=== PATIENT | male | born 1980 | race Caucasian/White ===

== ENCOUNTER → 2017-12-17 | Outpatient (CLI) | payer OTHER ==
--- NOTE | 2017-12-17 11:38 | XR ---
EXAMINATION TYPE: XR knee complete RT DATE OF EXAM: 12/17/2017 CLINICAL HISTORY: pain TECHNIQUE: Three views of the right knee are obtained. COMPARISON: None. FINDINGS: There is no acute fracture/dislocation. The tri-compartment joint spaces appear within no rmal limits. The overlying soft tissue appears unremarkable. Joint effsuion noted. IMPRESSION: There is no acute fracture or dislocation.ICD 10 NO FRACTURE, INITIAL EVALUATION
== END | disposition home or self-care (01) ==
LOC: RADXRMAIN 10:55
PROVIDERS: ATTEND Family Medicine
DX: M25.561 Pain in right knee (principal)

== ENCOUNTER → 2019-10-24 | Outpatient (CLI) | payer BC ==
--- NOTE | 2019-10-25 10:25 | MR ---
EXAMINATION TYPE: MR shoulder LT wo con DATE OF EXAM: 10/24/2019 COMPARISON: None HISTORY: Lt shoulder pain x 4 mos TECHNIQUE: Multiplanar, multisequence imaging of the left shoulder is performed without contrast. FINDINGS: Rotator Cuff: There is mild tendinopathy of the supraspinatus and the distal insertional fibers with signal alteration and bursal surface fiber fraying. No sizable tear is seen. The infraspinatus demons trates moderate tendinopathy of the insertional fibers with alteration of the intrinsic signal. The t eres minor and subscapularis are unremarkable in signal and muscle volume. Acromioclavicular Joint: There is moderate acromioclavicular arthropathy with capsular hypertrophy, s ubchondral cystic change and marginal osteophytes. Glenohumeral Joint: Small osteophyte is seen in the anterior inferior humeral head. Glenohumeral join t space is otherwise maintained. Labrum: The labrum appears grossly intact given limitation of non-arthrogram study. Biceps Tendon: The long head of biceps is in normal location within bicipital groove. There is mild t endinopathy of the intra-articular portion of the long head of the biceps with signal alteration of t he intrinsic signal. Bone marrow signal: No focal abnormal marrow signal is appreciated. Other: Trace amount of fluid in the subdeltoid/subacromial bursa. IMPRESSION: 1. Mild supraspinatus tendinopathy and moderate infraspinatus tendinopathy with minimal bursal surfac e fiber fraying of the supraspinatus. No sizable rotator cuff tear. 2. Moderate acromioclavicular arthropathy. 3. Mild tendinopathy of the intra-articular portion long head of the biceps tendon. 4. Findings that can be seen in subdeltoid/subacromial bursitis.
== END | disposition home or self-care (01) ==
LOC: RADMRIMAIN 12:50
PROVIDERS: ATTEND Family Medicine
DX: M75.82 Other shoulder lesions, left shoulder (principal); M12.812 Other specific arthropathies, not elsewhere classified, left shoulder; M67.922 Unspecified disorder of synovium and tendon, left upper arm

== ENCOUNTER → 2021-07-12 | Outpatient (CLI) | payer BC ==
--- NOTE | 2021-07-13 00:45 | MR ---
EXAMINATION TYPE: MR knee RT wo con DATE OF EXAM: 07/12/2021 COMPARISON: None HISTORY: Right inner knee pain, pain behind knee, painful kneecap, and swelling for 2 weeks after mis sing a step on stairs. Multiplanar multiecho imaging of the right knee without contrast. The anterior and posterior cruciate ligaments are intact. There is a mild knee joint effusion. There is complex horizontal and vertical tear through the posterior horn medial meniscus. The lateral menis cus is intact. Collateral ligaments appear intact. There is mild subchondral edema in the medial tibial condyle. Thi s is seen near the tibial spines. The distal femur is intact. There is small popliteal cyst measuring 2 x 1 cm. IMPRESSION: There is complex tear of the posterior horn medial meniscus. Mild osteoarthritic changes. There is mi ld spurring of the femoral and tibial condyles. Knee joint effusion and small popliteal cyst. There is evidence of mild bone bruise of the medial tib ial condyle. There is also similar mild subchondral edema in the patella.
== END | disposition home or self-care (01) ==
LOC: RADMRIMAIN 21:08
PROVIDERS: ATTEND Orthopaedic Surgery
DX: S83.231A Complex tear of medial meniscus, current injury, right knee, initial encounter (principal); S80.12XA Contusion of left lower leg, initial encounter; M17.11 Unilateral primary osteoarthritis, right knee; M25.461 Effusion, right knee; M71.22 Synovial cyst of popliteal space [Baker], left knee; W10.9XXA Fall (on) (from) unspecified stairs and steps, initial encounter

== ENCOUNTER → 2021-07-27 | Outpatient (CLI) | payer BC ==
[2021-07-27 16:20] LABS: Basophils # (A) 0.03 X 10*3/uL (0.00-0.10); Basophils % (A) 0.6 %; Eosinophils # (A) 0.23 X 10*3/uL (0.04-0.35); Eosinophils % (A) 4.5 %; HCT 46.8 % (39.6-50.0); HGB 15.8 g/dL (13.0-17.0); Immature Grans, Automated 0.2 %; Lymphocytes # (A) 2.13 X 10*3/uL (0.90-5.00); Lymphocytes % (A) 41.7 %; MCH 29.2 pg (27.0-32.0); MCHC 33.8 g/dL (32.0-37.0); MCV 86.5 fL (80.0-97.0); Monocytes # (A) 0.32 X 10*3/uL (0.20-1.00); Monocytes % (A) 6.3 %; NRBC Per 100 WBC 0 /100 WBCS (0.0-0.0); Neutrophils # (A) 2.39 X 10*3/uL (1.80-7.70); Neutrophils % (A) 46.7 %; Platelet Count 262 X 10*3/uL (140-440); RBC 5.41 X 10*6/uL (4.40-5.60); RDW 12.7 % (11.5-14.5); WBC 5.11 X 10*3/uL (4.50-10.00)
[2021-07-27 16:27] LABS: Anion Gap 11.3 mmol/L (10.00-18.00); Carbon Dioxide 22.8 mmol/L (20.0-27.5); Potassium 4.1 mmol/L (3.5-5.5)
== END | disposition home or self-care (01) ==
LOC: LABPAT 10:17
PROVIDERS: ATTEND Orthopaedic Surgery
DX: Z01.812 Encounter for preprocedural laboratory examination (principal); M23.91 Unspecified internal derangement of right knee
CPT/HCPCS: 80051; 85025

== ENCOUNTER 2021-08-01 05:41 | Day surgery (SDC) | payer BC ==
[2021-07-29 09:10] VITALS: BMI 31.6
--- NOTE | 2021-07-31 20:15 | HP ---
HISTORY AND PHYSICAL REASON FOR ADMISSION: Surgery scheduled for 08/01/2021 HISTORY OF PRESENT ILLNESS: Rhys Haque is a 40-year-old gentleman seen with progressive right knee pain. We discussed options for treatment. He elected to proceed with right knee arthroscopy. Consent obtained. PAST MEDICAL HISTORY: Noncontributory. SURGICAL HISTORY: Noncontributory. DAILY MEDICATIONS: Aleve. ALLERGIES: None. SOCIAL HISTORY: He currently smokes cigarettes. PHYSICAL EVALUATION OF THE RIGHT KNEE: Range of motion is -5/6 to 90 degrees. Large effusion. Tenderness medial joint line. Positive medial Jazlyn's. Ligaments stable. Hip rotation without pain. Distal neurovascular exam intact. RADIOGRAPHS: Right knee radiographs revealed mild medial compartment osteoarthritis. MRI right knee revealed a complex medial meniscal tear. IMPRESSION: Internal derangement of right knee with medial meniscal tear. PLAN: Right knee arthroscopy with partial medial meniscectomy and debridement. Surgery is 08/01/2021. MMODL / IJN: [id number] /
[~2021-08-01 05:41] MED LIST: DEXAMETHASONE SOD PHOSPHATE 4 MG/ML 1 ML VIAL IV ONE; LIDOCAINE 1% (10MG/ML) FOR IV START INTRADERMA PRN; ONDANSETRON 4 MG/2 ML VIAL IVP ONE; SCOPOLAMINE 1.5MG/72HR PATCH TRANSDERM ONE
[2021-08-01] MEDS: LACTATED RINGERS 1,000 ML IV SCH ×2 (06:20→06:52)
[2021-08-01] MEDS ORDERED: BUPIVACAINE (PF) 0.25% 30 ML VIAL SQ ONE ×2 (06:48→07:30)
[2021-08-01] MEDS ORDERED: MIDAZOLAM 2 MG/2 ML VIAL ONE (06:50)
[2021-08-01] MEDS ORDERED: fentaNYL (PF) 50 MCG/ML 2 ML AMP ONE (06:50)
[2021-08-01] MEDS ORDERED: LIDOCAINE 1% INJ 10MG/ML (20 ML MDV) ONE (06:50)
[2021-08-01] MEDS ORDERED: PROPOFOL 10 MG/ML 20 ML VIAL IV ONE (06:50)
--- NOTE | 2021-08-01 07:44 | P.OP ---
Date of Procedure: 08/01/21 Preoperative Diagnosis: Internal derangement right knee Postoperative Diagnosis: 1. Tear medial meniscus right knee 2. 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 Reactive synovitis medial, lateral and suprapatellar compartments right knee Procedure(s) Performed: 1. Arthroscopic partial medial meniscectomy right knee 2. Arthroscopic chondroplasty medial femoral condyle right knee 3. Arthroscopic partial synovectomy medial, lateral and suprapatellar compartments right knee Anesthesia: PIERREA, local Surgeon: Adryan Wolff Estimated Blood Loss (ml): 7 Pathology: none sent Condition: stable Disposition: PACU Indications for Procedure: 40-year-old gentleman seen with progressive right knee pain. After treatment options were discussed, he elected to proceed with arthroscopy. Operative Findings: See description of procedure Description of Procedure: Patient was taken to the operative suite. Patient underwent a general anesthetic by the department of anesthesia. Patient was given preoperative antibiotics. The right lower extremity was placed in a well-padded arthroscopic leg ruiz. The right leg was prepped and draped in the normal sterile orthopedic fashion. A lateral parapatellar and suprapatellar incision was made. Trochars were inserted. Arthroscopy was initiated. Suprapatellar pouch revealed diffuse thick reactive synovitis. The patellofemoral joint appeared to articulate congruently. There was grade 1/2 chondromalacia with no osteochondral tears present. The scope was guided into the medial gutter. No loose bodies or plica were identified. The scope was then guided into the medial compartment. A medial parapatellar incision was made. Trocar inserted followed by probe. There was a complex tear involving the posterior horn and midbody of the medial meniscus. There were grade 1/2 chondromalacia changes of the medial femoral condyle with some osteochondral flap tears present. There was thick reactive synovitis anteriorly. I performed a partial medial meniscectomy getting down to stable meniscal tissue. I performed a chondroplasty of the medial femoral condyle getting down to stable osteochondral tissue. I performed a partial synovectomy decompressing the thick reactive synovitis anteriorly. The residual meniscus was stable. The residual osteochondral surface appears stable. There was good decompression of the synovitis. Scope and probe were then guided into the intercondylar notch. Cruciates were identified, probed and found to be stable. The scope and probe were then guided into lateral compartment. The lateral meniscus was probed and it was found to be stable. The osteochondral surface was stable. There was some thick reactive synovitis anteriorly. I introduced a motorized shaver and performed a partial synovectomy. Shaver was removed. There was good decompression of the synovitis. The scope was in guided back into the suprapatellar compartment. I introduced a motorized shaver into the suprapatellar compartment. I debrided some piecemeal fragments of meniscus that I encountered. I performed a partial synovectomy. Shaver was removed. There was good decompression of the synovitis. I took one more look on the entire knee, no residual debris. Instruments were now removed from the joint. The joint was infiltrated with .25% Marcaine. Steri-Strips were applied to the portal sites. Sterile dressings were applied. The patient was placed into a TOMASZ hose. No tourniquet was utilized. The patient was awakened, transferred to a bed and taken to recovery stable satisfactory condition.
[2021-08-01] MEDS: HYDROmorphone 0.5 MG/0.5 ML SYRINGE IVP PRN ×2 (07:45→07:56)
[2021-08-01] MEDS ORDERED: KETOROLAC 15 MG/ML 1 ML VIAL IVP ONE (07:59)
[2021-08-01 08:08] VITALS: TEMP 97.6
[2021-08-01 08:48] VITALS: RESP 18
[2021-08-01 08:59] VITALS: PULSE 69
[2021-08-01 09:13] VITALS: BP 129/85
== END 2021-08-01 09:44 | disposition home or self-care (01) ==
LOC: OR 05:41
PROVIDERS: ATTEND Orthopaedic Surgery
DX: S83.241A Other tear of medial meniscus, current injury, right knee, initial encounter (principal); M94.261 Chondromalacia, right knee
CPT/HCPCS: 29881; 29875; J2250; J1100; J0690; J2405; J2001; J3010; J1885; J2704; J1170

== ENCOUNTER 2022-07-03 16:57 | Emergency (ER) | payer BC, OTHER ==
[2022-07-03] MEDS ORDERED: DIPH,PERTUS(ACELL)TETVAC-LF 0.5 ML VIAL IM ONE (17:35)
[2022-07-03] MEDS ORDERED: IBUPROFEN 600 MG TAB PO STA (17:39)
[2022-07-03] MEDS ORDERED: ACETAMINOPHEN TAB 500 MG TAB PO STA (17:39)
--- NOTE | 2022-07-03 17:42 | ED ---
Wound/Laceration HPI - General Chief Complaint: Wound/Laceration Stated Complaint: Finger Injury Time Seen by Provider: 07/03/22 17:34 Source: patient, RN notes reviewed, old records reviewed Mode of arrival: ambulatory Limitations: no limitations - History of Present Illness Initial Comments: 41-year-old male presents with complaints of left index finger injury. Patient states he hit it with a hammer around 3:30 today. Bleeding controlled with tissue applied prior to arrival. Unsure if tetanus shot is up-to-date. -: hour(s) (2) Location: other (left index fingertip) Patient Tetanus UTD: No Context: accidental (hammer) Associated Symptoms: none Treatments Prior to Arrival: bandage - Related Data Home Medications Medication Instructions Recorded Confirmed Ibuprofen [Advil] 400 mg PO Q8HR PRN 07/29/21 08/01/21 Previous Rx's Medication Instructions Recorded HYDROcodone/APAP 7.5-325MG [[place] 1 each PO Q6HR PRN #21 tab 08/01/21 7.5] Allergies Allergy/AdvReac Type Severity Reaction Status Date / Time No Known Allergies Allergy Verified 07/03/22 17:30 Review of Systems ROS Statement: Those systems with pertinent positive or pertinent negative responses have been documented in the HPI. ROS Other: All systems not noted in ROS Statement are negative. Past Medical History Additional Past Medical History / Comment(s): back pain History of Any Multi-Drug Resistant Organisms: None Reported Past Surgical History: No Surgical Hx Reported Past Psychological History: No Psychological Hx Reported Smoking Status: Current every day smoker Past Alcohol Use History: None Reported Past Drug Use History: None Reported General Exam Limitations: no limitations General appearance: alert, in no apparent distress Head exam: Present: atraumatic Eye exam: Absent: scleral icterus, conjunctival injection, periorbital swelling Respiratory exam: Absent: respiratory distress, accessory muscle use Cardiovascular Exam: Present: regular rate Left Hand Wrist exam: Present: tenderness, swelling, ecchymosis, subungual hematoma (Distal tip left index finger) Vascular: Absent: vascular compromise Neurological exam: Present: alert, oriented X3 Psychiatric exam: Present: normal affect, normal mood Skin exam: Present: warm, dry, normal color. Absent: cyanosis, diaphoretic, pallor Course Vital Signs 07/03/22 07/03/22 17:28 19:12 Temperature 98.0 F 98.6 F Pulse Rate 75 64 Respiratory 20 18 Rate Blood Pressure 124/82 127/88 O2 Sat by Pulse 99 98 Oximetry Procedures - Procedures Initial comment: Trephination and debridement of left index finger injury Medical Decision Making - Medical Decision Making X-ray of the left index finger interpreted by me shows no evidence of fracture. Radiologist interpretation no acute osseous pathology or radiopaque foreign body. Digital block was performed and wound was cleansed. Bulky nonadhering dressing was applied. Tetanus shot was updated. He was directed to keep wound clean and dry. Follow-up with primary care doctor next week. Case discussed with Dr. Morales Was pt. sent in by a medical professional or institution? @ -No Did you speak to anyone other than the patient for history? @ -No Did you review nursing and triage notes? @ -Yes I agree Were old charts reviewed? @ -No Differential Diagnosis? @ -Fracture, laceration, contusion, subungual hematoma, avulsion injury X-rays interpreted by me (1pt min.)? @ -YES as above What testing was considered but not performed? (CT, X-rays, U/S, labs)? Why? @No What meds were considered but not given? Why? @ -Antibiotics were considered, patient was given bacitracin dressing directed to monitor for signs of infection and follow-up with primary care doctor or return with any new or concerning symptoms Did you discuss the management of the patient with other professionals? @ -No Did you reconcile home meds? @ -No Was smoking cessation discussed for >3mins.? @ -No Was critical care preformed (if so, how long)? @ -No Were there social determinants of health that impacted care today? How? (Homelessness, low income, unemployed, alcoholism, drug addiction, transportati on, low edu. Level, literacy, decrease access to med. care, long-term, rehab)? @ -None Was there de-escalation of care discussed even if they declined? (Discuss DNR or withdrawal of care, Hospice)? @ -No What co-morbidities impacted this encounter? (DM, HTN, Smoking, COPD, CAD, Cancer, CVA, Hep., AIDS, mental health diagnosis, sleep apnea, morbid obesity)? @ -No Was patient admitted / discharged? @ -Discharged Undiagnosed new problem with uncertain prognosis? @ -[none] Drug Therapy requiring intensive monitoring for toxicity (Heparin, Nitro, Insulin, Cardizem)? @ -No Were any procedures done? @ -Trephination and debridement of wound Diagnosis/symptom? @ -Crush injury left index finger, subungual hematoma, avulsion injury Acute, or Chronic, or Acute on Chronic? @ -Acute Uncomplicated (without systemic symptoms) or Complicated (systemic symptoms)? @ -[default] Side effects of treatment? @ -[none] Exacerbation, Progression, or Severe Exacerbation] @ -[no] Poses a threat to life or bodily function? @ -[no] Disposition Clinical Impression: Crush injury to finger Disposition: HOME SELF-CARE Condition: Good Instructions (If sedation given, give patient instructions): Crush Injury (ED) Additional Instructions: Keep wound clean with a thin layer of bacitracin or Neosporin and bandaged. Follow-up with the primary care doctor next week. Return to the emergency room with any new or concerning symptoms including signs of infection, redness, or drainage. Is patient prescribed a controlled substance at d/c from ED?: No Referrals: Eduardo Araujo MD [Primary Care Provider] - 1-2 days Time of Disposition: 18:54
[2022-07-03] MEDS ORDERED: LIDOCAINE 1% INJ 10MG/ML (30 ML VIAL-PF) SQ ONE (17:43)
--- NOTE | 2022-07-03 18:06 | XR ---
EXAMINATION TYPE: XR finger LT DATE OF EXAM: 07/03/2022 5:48 PM INDICATION: Patient age:Male; 41 years old; Reason for study: 2nd finger injury - hammer; COMPARISON: None TECHNIQUE: Frontal, lateral and oblique views of the left finger were obtained. FINDINGS: Soft tissue defect involving the left second digit distal aspect. No evidence of fracture. Normal alignment of the visualized joints. No acute osseous pathology is identified. There is soft t issue swelling of the distal left second digit. No radiopaque foreign body. IMPRESSION: No acute osseous pathology. No radiopaque foreign body.
[2022-07-03] MEDS ORDERED: BACITRACIN OINT 1 EACH PACKET TOPICAL ONE (19:06)
[2022-07-03 19:15] VITALS: BP 127/88; PULSE 64; RESP 18; TEMP 98.6
== END 2022-07-03 19:16 | disposition home or self-care (01) ==
LOC: EC 16:57
DX: S67.191A Crushing injury of left index finger, initial encounter (principal); F17.200 Nicotine dependence, unspecified, uncomplicated; Z23 Encounter for immunization; W22.8XXA Striking against or struck by other objects, initial encounter
CPT/HCPCS: 73140; 90715; 99283; 90471; J2001